=== PATIENT | female | born 1995 | race Caucasian/White ===

== ENCOUNTER → 2016-09-19 | Outpatient (CLI) | payer BC ==
[~2016-09-19] MED LIST: ALBUTEROL0.09 MG/A4 IH; CELEXA40 MG PO; CYMBALTA 30MG30 MG PO; CYMBALTA 60MG60 MG PO; EPI EZ PEN1 MG/ML IM; EPIPEN 2-PAK1 MG/ML IM; FIORICET 325 MG1 TA1 PO; FISH OIL 1000MG1 CAP PO; KLONOPIN 1MG1 MG PO; MAG-OX 400400 MG/TAB PO; NATURE'S BLE1000 MCG PO; NEURONTIN300 MG/CAP PO; PHENERGAN 25 TA25 MG; PREDNISONE20 MG PO; PRILOSEC2.5 MG/Pac PO; PROVIGIL200 MG PO; SINGULAIR 110 MG/TAB PO; SKELAXIN 800MG800 MG PO; SUDAFED30 MG PO; VITAMIN B-1000 MCG/T PO; ZANTAC 150MG T150 MG PO; ZOLOFT 50MG50 MG PO
== END ==
LOC: BHSO 08:18
DX: F31.81 Bipolar II disorder (principal)

== ENCOUNTER 2019-04-26 21:53 | Emergency (ER) | payer OTHER ==
[~2019-04-26] VITALS: Ht 170.2 cm; Wt 80.0 kg
[2019-04-26] MEDS ORDERED: PREDNISONE20 MG PO (22:45)
[2019-04-26] MEDS ORDERED: EPIPEN 2-PAK1 MG/ML IM (22:45)
[2019-04-26 23:25] VITALS: BP 111/76; PULSE 70
== END 2019-04-26 23:30 | disposition home or self-care (01) ==
LOC: COL.ER 21:53
DX: T78.1XXA Other adverse food reactions, not elsewhere classified, initial encounter (principal)
CPT/HCPCS: J2405; J7030; J7512

== ENCOUNTER 2019-08-13 22:11 | Emergency (ER) | payer OTHER ==
[~2019-08-13] VITALS: Ht 170.2 cm; Wt 84.1 kg
[2019-08-13 22:16] VITALS: TEMP 97.8
[2019-08-13] MEDS ORDERED: SEROQUEL XR50 MG PO (22:41)
[2019-08-13] MEDS ORDERED: DESYREL 50MG50 MG PO (22:42)
[2019-08-14 00:30] VITALS: BP 105/66; PULSE 90
[2019-08-14] MEDS ORDERED: PEPCID 20MG TAB20 MG PO (00:33)
[2019-08-14] MEDS ORDERED: BENADRYL25 M2 PO (00:33)
[2019-08-14] MEDS ORDERED: PREDNISONE20 MG PO (00:33)
== END 2019-08-14 00:58 | disposition home or self-care (01) ==
LOC: COL.ER 22:11
DX: T78.1XXA Other adverse food reactions, not elsewhere classified, initial encounter (principal); F31.9 Bipolar disorder, unspecified
CPT/HCPCS: J0171; J1100; J2405